=== PATIENT | female | born 1970 | race Caucasian/White ===

== ENCOUNTER 2021-06-06 20:58 | Inpatient (IN) | payer MEDICAID, OTHER ==
[~2021-06-06] VITALS: Ht 157.5 cm; Wt 79.5 kg
[2021-06-06] MEDS ORDERED: 0.9% SODIUM CHLORIDE 10 ML SYRINGE IVP PRN (23:15)
[2021-06-06] MEDS ORDERED: BARIUM SULFATE 0.1% SUSPENSION 450 ML BOTTLE PO ONE (23:15)
[2021-06-06] MEDS ORDERED: ONDANSETRON HCL 4 MG/2 ML VIAL IVP ONE (23:15)
[2021-06-06] MEDS ORDERED: ONDANSETRON HCL 4 MG/2 ML VIAL IVP PRN (23:15)
[2021-06-06] MEDS ORDERED: SODIUM CHLORIDE 0.9% 1,000 ML IV ONE (23:15)
[2021-06-06] MEDS ORDERED: ACETAMINOPHEN 325 MG TABLET PO PRN (23:15)
[2021-06-06] MEDS ORDERED: HYDROmorphone 2 MG/ML VIAL IVP ONE (23:15)
[2021-06-06 23:38] LABS: BASOPHILS % (AUTO) 0.3 % (0.0-2.0); EOSINOPHILS % (AUTO) 2.7 % (1.0-6.0); HEMATOCRIT 36.6 % (36-46); HEMOGLOBIN 11.9 g/dL (12.0-16.0); LYMPHOCYTES # (AUTO) 1.2 K/uL (1.0-4.8); MEAN CORPUSCULAR HEMOGLOBIN 26.5 pg (26.0-34.0); MEAN CORPUSCULAR HGB CONC 32.5 G/dL (31.0-37.0); MEAN CORPUSCULAR VOLUME 82 fL (80-100); MONOCYTES # (AUTO) 0.7 K/uL (0.1-1.0); MONOCYTES % (AUTO) 7.4 % (2.0-9.0); NEUTROPHILS # (AUTO) 7.1 K/uL (1.8-7.7); NEUTROPHILS % (AUTO) 76.6 % (40.0-70.0); PLATELET COUNT (AUTO) 265 K/uL (150-450); RED BLOOD CELL COUNT(AUTO) 4.48 MIL/uL (4.00-5.20); RED CELL DISTRIBUTION WIDTH 14.9 % (11.5-14.5)
[2021-06-06 23:54] LABS: INR 0.9 (0.9-1.1); PROTHROMBIN TIME 10.1 SEC (9.4-11.6)
[2021-06-06 23:55] LABS: ALANINE AMINOTRANSFERASE 27 U/L (12-78); ALBUMIN 2.9 g/dL (3.4-5.0); ALKALINE PHOSPHATASE 126 U/L (46-116); ANION GAP 4 mmol/L (8-16); ASPARTATE AMINOTRANSFERASE 20 U/L (15-37); BILIRUBIN,TOTAL 0.3 mg/dL (0.1-1.0); CARBON DIOXIDE 33 mmol/L (22-29); CHLORIDE 104 mmol/L (98-107); GLOMERULAR FILTR. RATE CALC > 60 mL/min (>60); GLUCOSE,RANDOM 99 mg/dL (70-110); LIPASE 51 U/L (73-393); POTASSIUM 4.5 mmol/L (3.5-5.1); SODIUM SERUM 141 mmol/L (136-145); TOTAL PROTEIN, SERUM 7.4 g/dL (6.4-8.2); UREA NITROGEN, BLOOD 15 mg/dL (7-18)
[2021-06-07] MEDS ORDERED: NALOXONE HCL 0.4 MG/ML VIAL IVP PRN
[2021-06-07] MEDS ORDERED: ONDANSETRON HCL 4 MG/2 ML VIAL IVP PRN
[2021-06-07 00:01] LABS: CALCIUM, TOTAL 8.6 mg/dL (8.8-10.5)
[2021-06-07] MEDS ORDERED: IOHEXOL 350 MG/ML 150 ML VIAL ONE (00:08)
[2021-06-07] MEDS ORDERED: SODIUM CHLORIDE 0.9% 100 ML ONE (00:09)
[2021-06-07] MEDS: HEPARIN SODIUM,PORCINE 5,000 UNITS/ML VIAL SQ SCH ×4 (00:18→23:44)
[2021-06-07] MEDS: HYDROmorphone 2 MG/ML VIAL IVP PRN ×6 (01:54→21:55)
[2021-06-07 04:29] LABS: APPEARANCE,URINE CLEAR (CLEAR); BILIRUBIN,URINE NEGATIVE (NEGATIVE); GLUCOSE, URINE (UA) NEGATIVE (NEGATIVE); KETONES,URINE NEGATIVE (NEGATIVE); LEUKOCYTE ESTERASE ,URINE SMALL (NEGATIVE); NITRATE,URINE NEGATIVE (NEGATIVE); OCCULT BLOOD,URINE MODERATE (NEGATIVE); PROTEIN,URINE NEGATIVE (NEGATIVE); UROBILINOGEN,URINE 0.2 mg/dL (<=1.0)
[2021-06-07 04:54] LABS: COVID AG,FIA SOURCE NASOPHARYNGEAL
[2021-06-07 04:57] LABS: BACTERIA,URINE Rare /HPF (None Seen); SQUAMOUS EPITHELIAL CELL,UR Few /LPF (None Seen)
[2021-06-07] MEDS: AMPICILLIN SODIUM/SULBACTAM NA 1.5 GM in SODIUM CHLORIDE 0.9% 50 ML IV SCH ×4 (06:09→23:45)
[2021-06-07] MEDS: SODIUM CHLORIDE 0.9% 1,000 ML IV SCH ×3 (06:09→21:14)
[2021-06-07 08:20] LABS: BASOPHILS % (AUTO) 0.3 % (0.0-2.0); EOSINOPHILS % (AUTO) 3.3 % (1.0-6.0); HEMATOCRIT 37.6 % (36-46); HEMOGLOBIN 12.1 g/dL (12.0-16.0); LYMPHOCYTES # (AUTO) 0.8 K/uL (1.0-4.8); LYMPHOCYTES % (AUTO) 11.1 % (22.0-44.0); MEAN CORPUSCULAR HEMOGLOBIN 26.4 pg (26.0-34.0); MEAN CORPUSCULAR HGB CONC 32.2 G/dL (31.0-37.0); MEAN CORPUSCULAR VOLUME 82 fL (80-100); MONOCYTES # (AUTO) 0.6 K/uL (0.1-1.0); MONOCYTES % (AUTO) 7.9 % (2.0-9.0); NEUTROPHILS # (AUTO) 5.6 K/uL (1.8-7.7); NEUTROPHILS % (AUTO) 77.4 % (40.0-70.0); PLATELET COUNT (AUTO) 230 K/uL (150-450); RED BLOOD CELL COUNT(AUTO) 4.57 MIL/uL (4.00-5.20); RED CELL DISTRIBUTION WIDTH 15.2 % (11.5-14.5)
[2021-06-07 08:37] LABS: ALANINE AMINOTRANSFERASE 22 U/L (12-78); ALBUMIN 2.7 g/dL (3.4-5.0); ALKALINE PHOSPHATASE 115 U/L (46-116); ANION GAP 4 mmol/L (8-16); ASPARTATE AMINOTRANSFERASE 18 U/L (15-37); BILIRUBIN,TOTAL 0.3 mg/dL (0.1-1.0); CALCIUM, TOTAL 8.1 mg/dL (8.8-10.5); CARBON DIOXIDE 32 mmol/L (22-29); CHLORIDE 106 mmol/L (98-107); CREATININE 0.49 mg/dL (0.60-1.30); GLOMERULAR FILTR. RATE CALC > 60 mL/min (>60); GLUCOSE,RANDOM 95 mg/dL (70-110); SODIUM SERUM 142 mmol/L (136-145); TOTAL PROTEIN, SERUM 6.7 g/dL (6.4-8.2); UREA NITROGEN, BLOOD 11 mg/dL (7-18)
[2021-06-07 09:40] VITALS: BP 82/47
[2021-06-07 12:33] VITALS: BP 96/51
[2021-06-07] MEDS ORDERED: INFLUENZA VIRUS VACCINE QVS 2021-22 (6MO+)/PF 60 MCG/0.5 ML SYRINGE IM. ONE (13:15)
[2021-06-07] MEDS: NICOTINE 14 MG/24 HOUR PATCH TD SCH (15:55)
[2021-06-07 16:10] VITALS: BP 107/61
[2021-06-07] MEDS: ESCITALOPRAM OXALATE 10 MG TABLET PO SCH (19:22)
[2021-06-07 21:19] VITALS: BP 102/50
[2021-06-08] MEDS: HYDROmorphone 2 MG/ML VIAL IVP PRN ×6 (00:53→20:39)
[2021-06-08] MEDS: SODIUM CHLORIDE 0.9% 1,000 ML IV SCH ×3 (04:14→23:09)
[2021-06-08 05:05] VITALS: BP 107/54
[2021-06-08] MEDS: AMPICILLIN SODIUM/SULBACTAM NA 1.5 GM in SODIUM CHLORIDE 0.9% 50 ML IV SCH ×3 (06:01→17:01)
[2021-06-08 08:20] VITALS: BP 128/61
[2021-06-08] MEDS: NICOTINE 14 MG/24 HOUR PATCH TD SCH (08:32)
[2021-06-08] MEDS: ESCITALOPRAM OXALATE 10 MG TABLET PO SCH (08:33)
[2021-06-08] MEDS: HEPARIN SODIUM,PORCINE 5,000 UNITS/ML VIAL SQ SCH ×2 (08:33→16:55)
[2021-06-08] MEDS ORDERED: ESCI-8 PO (11:28)
[2021-06-08] MEDS ORDERED: CIPR250T26 PO (11:30)
[2021-06-08] MEDS ORDERED: METR500 PO (11:31)
[2021-06-08] MEDS ORDERED: TRAM50TA2 PO (11:32)
[2021-06-08 15:27] VITALS: BP 124/65
[2021-06-08 20:39] VITALS: BP 104/45
[2021-06-09] MEDS: AMPICILLIN SODIUM/SULBACTAM NA 1.5 GM in SODIUM CHLORIDE 0.9% 50 ML IV SCH ×4 (00:21→18:20)
[2021-06-09] MEDS: HEPARIN SODIUM,PORCINE 5,000 UNITS/ML VIAL SQ SCH ×3 (00:35→16:44)
[2021-06-09] MEDS: HYDROmorphone 2 MG/ML VIAL IVP PRN ×4 (04:04→16:44)
[2021-06-09 04:55] VITALS: BP 112/65
[2021-06-09] MEDS: SODIUM CHLORIDE 0.9% 1,000 ML IV SCH ×4 (06:20→19:09)
[2021-06-09] MEDS: NICOTINE 14 MG/24 HOUR PATCH TD SCH (08:00)
[2021-06-09] MEDS: ESCITALOPRAM OXALATE 10 MG TABLET PO SCH (08:00)
[2021-06-09 08:25] VITALS: BP 141/78
[2021-06-09] MEDS: LORazepam 1 MG TABLET PO PRN ×2 (12:26→16:44)
[2021-06-09 19:55] VITALS: BP 103/57
[2021-06-10] MEDS: LORazepam 1 MG TABLET PO PRN ×4 (00:27→16:17)
[2021-06-10] MEDS: HYDROmorphone 2 MG/ML VIAL IVP PRN ×3 (00:27→09:55)
[2021-06-10] MEDS: HEPARIN SODIUM,PORCINE 5,000 UNITS/ML VIAL SQ SCH ×3 (00:39→16:18)
[2021-06-10] MEDS: AMPICILLIN SODIUM/SULBACTAM NA 1.5 GM in SODIUM CHLORIDE 0.9% 50 ML IV SCH ×4 (00:42→17:58)
[2021-06-10] MEDS: SODIUM CHLORIDE 0.9% 1,000 ML IV SCH ×4 (01:49→21:51)
[2021-06-10 04:19] VITALS: BP 118/54
[2021-06-10] MEDS: NICOTINE 14 MG/24 HOUR PATCH TD SCH (09:24)
[2021-06-10] MEDS: ESCITALOPRAM OXALATE 10 MG TABLET PO SCH (09:24)
[2021-06-10] MEDS: HYDROmorphone HCL 2 MG TABLET PO SCH ×2 (12:36→18:00)
[2021-06-10] MEDS: GABAPENTIN 100 MG CAPSULE PO SCH (21:49)
[2021-06-11] MEDS: AMPICILLIN SODIUM/SULBACTAM NA 1.5 GM in SODIUM CHLORIDE 0.9% 50 ML IV SCH ×4 (00:59→20:39)
[2021-06-11] MEDS: HYDROmorphone HCL 2 MG TABLET PO SCH ×4 (01:13→21:54)
[2021-06-11] MEDS: HEPARIN SODIUM,PORCINE 5,000 UNITS/ML VIAL SQ SCH ×4 (01:13→23:56)
[2021-06-11 05:45] VITALS: BP 111/56
[2021-06-11 08:11] VITALS: BP 110/62
[2021-06-11] MEDS: GABAPENTIN 100 MG CAPSULE PO SCH ×2 (09:36→20:38)
[2021-06-11] MEDS: ESCITALOPRAM OXALATE 10 MG TABLET PO SCH (09:37)
[2021-06-11] MEDS: NICOTINE 14 MG/24 HOUR PATCH TD SCH (09:38)
[2021-06-11] MEDS: SODIUM CHLORIDE 0.9% 1,000 ML IV SCH ×2 (11:33→17:46)
[2021-06-11] MEDS: LORazepam 1 MG TABLET PO PRN (16:22)
[2021-06-11] MEDS: TraMADol HCL 50 MG TABLET PO PRN (16:22)
[2021-06-11 21:00] VITALS: BP 112/68
[2021-06-12] MEDS: LORazepam 1 MG TABLET PO PRN ×4 (00:24→21:55)
[2021-06-12] MEDS: TraMADol HCL 50 MG TABLET PO PRN ×2 (00:24→15:55)
[2021-06-12] MEDS: SODIUM CHLORIDE 0.9% 1,000 ML IV SCH ×4 (00:24→23:39)
[2021-06-12] MEDS: AMPICILLIN SODIUM/SULBACTAM NA 1.5 GM in SODIUM CHLORIDE 0.9% 50 ML IV SCH ×4 (03:13→20:06)
[2021-06-12] MEDS: HYDROmorphone HCL 2 MG TABLET PO SCH ×4 (03:14→21:55)
[2021-06-12 08:12] VITALS: BP 116/72
[2021-06-12] MEDS: ESCITALOPRAM OXALATE 10 MG TABLET PO SCH (08:40)
[2021-06-12] MEDS: NICOTINE 14 MG/24 HOUR PATCH TD SCH (08:40)
[2021-06-12] MEDS: GABAPENTIN 100 MG CAPSULE PO SCH ×2 (08:41→20:06)
[2021-06-12] MEDS: HEPARIN SODIUM,PORCINE 5,000 UNITS/ML VIAL SQ SCH ×3 (08:41→23:39)
[2021-06-12 15:34] VITALS: BP 108/71
[2021-06-12 20:39] VITALS: BP 122/67
[2021-06-13] MEDS: AMPICILLIN SODIUM/SULBACTAM NA 1.5 GM in SODIUM CHLORIDE 0.9% 50 ML IV SCH (03:00)
[2021-06-13] MEDS: HYDROmorphone HCL 2 MG TABLET PO SCH ×3 (03:15→16:00)
[2021-06-13 05:08] VITALS: BP 122/65
[2021-06-13] MEDS: LORazepam 1 MG TABLET PO PRN ×2 (05:24→10:19)
[2021-06-13] MEDS: TraMADol HCL 50 MG TABLET PO PRN ×2 (05:24→13:35)
[2021-06-13 07:50] VITALS: BP 117/77
[2021-06-13] MEDS: CIPROFLOXACIN HCL 500 MG TABLET PO SCH ×3 (08:32→08:47)
[2021-06-13] MEDS: HEPARIN SODIUM,PORCINE 5,000 UNITS/ML VIAL SQ SCH ×2 (08:32→16:00)
[2021-06-13] MEDS: NICOTINE 14 MG/24 HOUR PATCH TD SCH (08:32)
[2021-06-13] MEDS: MetroNIDAZOLE 500 MG TABLET PO SCH ×3 (08:32→16:00)
[2021-06-13] MEDS: GABAPENTIN 100 MG CAPSULE PO SCH (08:33)
[2021-06-13] MEDS: ESCITALOPRAM OXALATE 10 MG TABLET PO SCH (08:33)
[2021-06-13] MEDS ORDERED: GABA-1216 PO (15:23)
[2021-06-13 16:06] VITALS: BP 104/61
== END 2021-06-13 17:55 | disposition home or self-care (01) | DRG 371 ==
LOC: EMS 21:01 → 6S 06-07 08:38
PROVIDERS: ADMIT Internal Medicine; ATTEND Internal Medicine
DX: K68.19 Other retroperitoneal abscess (principal); E43 Unspecified severe protein-calorie malnutrition; K61.1 Rectal abscess; M79.7 Fibromyalgia; K43.5 Parastomal hernia without obstruction or gangrene; F11.10 Opioid abuse, uncomplicated; Z20.822 Contact with and (suspected) exposure to COVID-19; Z68.32 Body mass index [BMI] 32.0-32.9, adult; Z93.3 Colostomy status; Z90.49 Acquired absence of other specified parts of digestive tract; Z79.899 Other long term (current) drug therapy; Z90.710 Acquired absence of both cervix and uterus; Z85.048 Personal history of other malignant neoplasm of rectum, rectosigmoid junction, and anus; Z28.21 Immunization not carried out because of patient refusal
CPT/HCPCS: 71045; 74177; 80053; 81001; 83605; 83690; 85025; 85610; 87040; 87081; 93005; 93970; 99242; 99285; J0295; J1170; J1644; J2405; J7030; J7050; Q9967; 36415-L1; 36415-TC